=== PATIENT | female | born 1940 | race Caucasian/White ===

== ENCOUNTER → 2017-07-27 | Outpatient (CLI) | payer MEDICARE ==
[~2017-07-27] MED LIST: FUROSEMIDE 20 MG/2 ML VIAL (J1940) As Ordered ONE
--- NOTE | 2017-07-27 12:51 | REP ---
Nuclear renal scintigraphy with differential flow and function analysis and Lasix washout venography: History: Ureteral stricture. Comparison study: December 04, 2014. Technique: 8.6 millicuries technetium 99m MAG3 is injected and posterior flow and excretory phase images are acquired. Renal cortical regions of interest are drawn and time activity curves are plotted for renal function analysis. 20 mg of intravenous Lasix is given and post Lasix washout venography is carried out. Scintigraphic findings: Posterior flow images demonstrate symmetric renal bed perfusion. Excretory phase images show no evidence of intrarenal mass. There is symmetric visualization of the intrarenal collecting systems bilaterally. Hydronephrosis is again noted on the right. Differential renal function analysis is asymmetric with 38% of overall renal cortical counts coming from the left kidney and 62% coming from the right. Time to peak activity is normal on the left at 2.0 minutes and somewhat delayed on the right at 3.0 minutes. Time to half max activity is minimally delayed on the left at 13.9 minutes and greater than 30 minutes on the right. These findings are similar to the prior study. Post Lasix renogram curves demonstrate time to half Lasix on the right at 10.2 minutes versus 7.0 on the left. Previous study showed the time to half Lasix on the right of 14.7 minute. Visually the hydronephrosis is similar to the prior study. Impression: Findings quite similar to the prior exam hydronephrosis on the right side with washout seen post Lasix. Signed by Jed Bishop MD 07/27/2017 01:20 P
== END ==
LOC: M RAD 09:30
PROVIDERS: ATTEND Urology
DX: N13.5 Crossing vessel and stricture of ureter without hydronephrosis (principal)
CPT/HCPCS: 78708; A9562; J1940

== ENCOUNTER → 2018-08-09 | Outpatient (CLI) | payer MEDICARE ==
[~2018-08-09] MED LIST changes: +FUROSEMIDE 20 MG/2 ML VIAL (J1940) As Ordered; -FUROSEMIDE 20 MG/2 ML VIAL (J1940) As Ordered ONE
== END ==
LOC: M RAD 12:21
DX: N13.5 Crossing vessel and stricture of ureter without hydronephrosis (principal); N13.30 Unspecified hydronephrosis
CPT/HCPCS: J1940